=== PATIENT | female | born 1980 | race Caucasian/White ===

== ENCOUNTER 2021-12-06 10:39 | Outpatient (CLI) | payer BC, SELFPAY ==
--- NOTE | 2021-12-09 15:17 | P.PCNHOL_ITS ---
Holter/Event Monitor Holter/Event Monitor Date of procedure: 12/09/21 Holter/Event Procedure: 48 Hr Holter Monitor Diagnosis: Tachycardia Indications: Tachycardia Image/Tracing Quality: Acceptable Finding: Underlying rhythm is sinus and sinus tachycardia average heart rate of 89 beats per minute minimum 47 beats per minute occurring at 6:12 a.m. and maximum 138 beats per minute occurring at 8:11 a.m.. Rare ventricular ectopy totaling 4 isolated premature ventricular contractions. No sustained or nonsustained ve ntricular tachycardia identified. Rare supraventricular totaling 14 isolated premature atrial contractions without atrial fibrillation atrial flutter and or high-grade AV blocks or prolonged pauses. [place] interval and QRS duration within normal limits throughout the study. No symptoms returned in conjunction with this study. Conclusion: Underlying sinus rhythm and sinus tachycardia without prolonged pauses, high- grade AV blocks, atrial fibrillation, atrial flutter, SVT. Rare ventricular and supraventricular ectopy as noted above.
== END 2021-12-06 10:40 | disposition home or self-care (01) ==
PROVIDERS: PCP Registered Nurse; Visit Provider Registered Nurse
DX: R00.0 Tachycardia, unspecified (principal)
CPT/HCPCS: 93225; 93226